=== PATIENT | female | born 1975 | race Caucasian/White ===

== ENCOUNTER 2019-04-03 07:11 | Emergency (ER) | payer MEDICAID, OTHER ==
[2019-04-03 07:52] VITALS: BP 124/88
--- NOTE | 2019-04-03 08:03 | UC ---
Bite Injury/Animal HPI - HPI Summary HPI Summary: 43 year old female presents with complaint of right hand cat bite 2 days ago. This is her own cat and is up to date on immunizations. The cat bit her while she was trying to protect a friend who was instigating the cat. Notes redness and swelling on the dorsum of her right hand. H/o right index finger partial amputation at 10 years old. - History of Current Complaint Chief Complaint: UCBiteInjury Stated Complaint: RIGHT HAND CAT BITE Time Seen by Provider: 04/03/19 08:00 Hx Obtained From: Patient Hx Last Menstrual Period: 4 yrs Severity Currently: Moderate Severity Initially: Moderate Pain Intensity: 0 Onset/Duration: Sudden Onset - after cat bite Type of Bite: Pet - cat Has Animal Been Immunized?: Yes Character: Puncture Associated Signs And Symptoms: Positive: Erythema, Swelling - dorsum of right hand. Negative: Fever, Drainage Animal Available for Observation: Yes Animal Control Notified: No - Risk Factors Infection/Sepsis Risk Factors: Negative - Allergies/Home Medications Allergies/Adverse Reactions: Allergies Allergy/AdvReac Type Severity Reaction Status Date / Time bupropion [From Wellbutrin] Allergy Severe throat Verified 04/03/19 07:36 pain and swelling, rash indoor/outdoor Allergy Runny Nose Uncoded 02/18/15 16:54 Home Medications: Home Medications clonazePAM TAB(*) [Klonopin TAB(*)] 1 mg PO BID 04/03/19 [History Confirmed ] PMH/Surg Hx/FS Hx/Imm Hx Previously Healthy: Yes - Depression, being treated. - Surgical History Surgical History: Yes Surgery Procedure, Year, and Place: c section x 3, cholecystectomy, facial surgery s/p dog bite, right index finger amputation - Family History Known Family History: Positive: Non-Contributory - Social History Alcohol Use: None Substance Use Type: None Smoking Status (MU): Heavy Every Day Tobacco Smoker - Immunization History Most Recent Tetanus Shot: unknown, poss 3 years Review of Systems All Other Systems Reviewed And Are Negative: Yes Constitutional: Positive: Negative Skin: Positive: Rash, Other - redeness and swelling dorsum of right hand. Eyes: Positive: Negative ENT: Positive: Negative Respiratory: Positive: Negative Cardiovascular: Positive: Negative Gastrointestinal: Positive: Negative Motor: Positive: Negative Neurovascular: Positive: Negative Musculoskeletal: Positive: Negative Neurological: Positive: Negative Psychological: Positive: Anxious - at baseline, Depressed - at baseline Is Patient Immunocompromised?: No Physical Exam Triage Information Reviewed: Yes Appearance: Well-Appearing Vital Signs: Initial Vital Signs Temp 97.7 F 04/03/19 07:44 Pulse 107 04/03/19 07:44 Resp 17 04/03/19 07:44 BP 124/88 04/03/19 07:44 Pulse Ox 100 04/03/19 07:44 Vital Signs Reviewed: Yes Eyes: Positive: Conjunctiva Clear ENT: Positive: Normal ENT inspection Neck: Positive: Supple, Nontender, No Lymphadenopathy Respiratory: Positive: Chest non-tender, Lungs clear, Normal breath sounds Cardiovascular: Positive: RRR, No Murmur Abdomen Description: Positive: Nontender, Soft Musculoskeletal: Positive: Strength Intact Neurological: Positive: Alert Skin: Positive: Rashes - Right dorsum of hand with erythema and swelling, three puncture wounds from cat bite noted without drainage. H/o distal index finger partial amputation at 10 years old. Cap refill brisk and full rom of all digits. Bite Injury Course/Dx - Differential Dx/Diagnosis Differential Diagnosis/HQI/PQRI: Cellulitis Provider Diagnosis: Cat bite of hand Discharge ED - Sign-Out/Discharge Documenting (check all that apply): Patient Departure All imaging exams completed and their final reports reviewed: No Studies - Discharge Plan Condition: Stable Disposition: HOME Prescriptions: Amoxicillin/Clavulanate TAB* [Augmentin TAB 875*] 875 mg PO BID 10 Days #20 tab Patient Education Materials: Animal Bite (ED) Referrals: Anel Olivas NP [Primary Care Provider] - Additional Instructions: Keep hand elevated, take the antibiotic as prescribed. Continue ibuprofen as needed for pain. Follow up if increased pain, swelling or redness spreads. - Billing Disposition and Condition Condition: STABLE Disposition: Home
[2019-04-03] MEDS ORDERED: Tetan/Diph/Pertus SYR(Tdap)* 0.5 ML SYR(BOOSTRIX) use SYR contains LATEX IM ONE (08:14)
== END 2019-04-03 08:27 | disposition home or self-care (01) ==
LOC: UCCORT 07:11
DX: S61.451A Open bite of right hand, initial encounter (principal); W55.01XA Bitten by cat, initial encounter; Y92.9 Unspecified place or not applicable; F32.9 Major depressive disorder, single episode, unspecified; Z79.899 Other long term (current) drug therapy; Z72.0 Tobacco use
CPT/HCPCS: 90715; 99212; G0463